=== PATIENT | female | born 1940 | race African-American/Black ===

== ENCOUNTER 2023-06-10 23:26 | Inpatient (IN) | payer OTHER ==
[2023-06-10 23:43] VITALS: BMI 37.2
[2023-06-11 04:15] LABS: BASO % 0.7 % (0-2.0); EOS % 2.4 % (0-4.5); HEMATOCRIT 39.6 % (32.4-45.2); HEMOGLOBIN 12.7 GM/dL (10.7-15.3); LYMPH % 24.9 % (8-40); MCH 29.4 pg (25.7-33.7); MCHC 32.1 g/dl (32.0-36.0); MEAN CELL VOLUME 91.8 fl (80-96); MEAN PLT VOLUME 9.7 fl (7.5-11.1); MONO % 7.5 % (3.8-10.2); NEUT % 64.5 % (42.8-82.8); PLATELET COUNT 283 10^3/uL (134-434); RBC 4.32 M/mm3 (3.60-5.2); RDW 14.9 % (11.6-15.6); WHITE BLOOD COUNT 7.6 K/mm3 (4.0-10.0)
[2023-06-11 04:34] LABS: CHLORIDE 104 mmol/L (98-107); SODIUM 137 mmol/L (136-145)
[2023-06-11 04:35] LABS: CALCIUM 9.1 mg/dL (8.5-10.1)
[2023-06-11 04:36] LABS: ALBUMIN 3.1 g/dl (3.4-5.0); BLOOD UREA NITROGEN 15.3 mg/dL (7-18); CO2 28 mmol/L (21-32); GLUCOSE,RANDOM 91 mg/dL (74-106)
[2023-06-11 04:39] LABS: SGOT/AST 78 U/L (15-37)
[2023-06-11 04:41] LABS: BILIRUBIN,TOTAL 0.4 mg/dL (0.2-1); TOT PROT 8.1 g/dl (6.4-8.2)
[2023-06-11 04:42] LABS: ALK PHOS 83 U/L (45-117)
[2023-06-11 04:48] LABS: ANION GAP 5 mmol/L (4-13); POTASSIUM 6.7 mmol/L (3.5-5.1); SGPT/ALT 19 U/L (13-61)
[2023-06-11 05:07] LABS: PH,URINE 5.5 (5.0-8.0); URINE APPEARANCE CLEAR; URINE BILIRUBIN NEGATIVE (NEGATIVE); URINE COLOR YELLOW; URINE GLUCOSE (UA) NEGATIVE (NEGATIVE); URINE KETONE TRACE (NEGATIVE); URINE LEUK ESTERASE NEGATIVE (NEGATIVE); URINE NITRITE NEGATIVE (NEGATIVE); URINE PROTEIN NEGATIVE (NEGATIVE); URINE UROBILINOGEN 0.2 mg/dL (0.2-1.0)
[2023-06-11 06:33] LABS: POTASSIUM 3.5 mmol/L (3.5-5.1)
[2023-06-11 06:34] LABS: CALCIUM 8.4 mg/dL (8.5-10.1)
[2023-06-11 06:35] LABS: BLOOD UREA NITROGEN 15.8 mg/dL (7-18)
[2023-06-11 06:38] LABS: CREATININE 0.9 mg/dL (0.55-1.3)
[2023-06-11] MEDS ORDERED: ASPIRIN 81 MG CHEWABLE TABLETS ONE (09:41)
[2023-06-11] MEDS ORDERED: ENOXAPARIN NA (PORCINE) 40 MG/0.4 ML DISP.SYRIN SQ ONE (09:42)
[2023-06-11] MEDS: ASPIRIN 81 MG CHEWABLE TABLETS PO SCH (09:43)
[2023-06-11] MEDS: ATORVASTATIN CA 40 MG TABLET (FP) PO SCH (21:28)
[2023-06-11] MEDS: amLODIPine BESYLATE 5 MG TABLET (FP) PO SCH (21:28)
[2023-06-11] MEDS: LOSARTAN POTASSIUM 50 MG TABLET PO SCH (21:28)
[2023-06-12] MEDS: ASPIRIN 81 MG CHEWABLE TABLETS PO SCH (09:37)
[2023-06-12] MEDS: ENOXAPARIN NA (PORCINE) 40 MG/0.4 ML DISP.SYRIN SQ SCH (09:37)
[2023-06-12] MEDS: amLODIPine BESYLATE 5 MG TABLET (FP) PO SCH (09:37)
[2023-06-12] MEDS: LOSARTAN POTASSIUM 50 MG TABLET PO SCH (09:37)
[2023-06-12 09:42] LABS: EOS % 2.8 % (0-4.5); HEMATOCRIT 38.1 % (32.4-45.2); HEMOGLOBIN 12.4 GM/dL (10.7-15.3); LYMPH % 24.2 % (8-40); MCH 29.8 pg (25.7-33.7); MCHC 32.4 g/dl (32.0-36.0); MEAN PLT VOLUME 9.6 fl (7.5-11.1); MONO % 7.1 % (3.8-10.2); NEUT % 64.9 % (42.8-82.8); PLATELET COUNT 282 10^3/uL (134-434); RBC 4.14 M/mm3 (3.60-5.2); WHITE BLOOD COUNT 7.3 K/mm3 (4.0-10.0)
[2023-06-12 09:58] LABS: POTASSIUM 3.8 mmol/L (3.5-5.1)
[2023-06-12 10:00] LABS: ALBUMIN 2.9 g/dl (3.4-5.0); BLOOD UREA NITROGEN 9.8 mg/dL (7-18); CALCIUM 9.4 mg/dL (8.5-10.1); MAGNESIUM 2.2 mg/dL (1.8-2.4)
[2023-06-12 10:03] LABS: PHOSPHOROUS 3.2 mg/dL (2.5-4.9)
[2023-06-12 10:04] LABS: CREATININE 0.7 mg/dL (0.55-1.3)
[2023-06-12 10:05] LABS: BILIRUBIN,TOTAL 0.4 mg/dL (0.2-1); TOT PROT 6.9 g/dl (6.4-8.2)
[2023-06-12] MEDS ORDERED: LORazepam 0.5 MG TABLET PO ONE (14:56)
[2023-06-12] MEDS: ATORVASTATIN CA 40 MG TABLET (FP) PO SCH (21:25)
[2023-06-13] MEDS: ENOXAPARIN NA (PORCINE) 40 MG/0.4 ML DISP.SYRIN SQ SCH (09:33)
[2023-06-13] MEDS: amLODIPine BESYLATE 5 MG TABLET (FP) PO SCH (09:33)
[2023-06-13] MEDS: LOSARTAN POTASSIUM 50 MG TABLET PO SCH (09:33)
[2023-06-13] MEDS: ASPIRIN 81 MG CHEWABLE TABLETS PO SCH (09:33)
[2023-06-13 10:20] LABS: BASO % 0.4 % (0-2.0); EOS % 2.9 % (0-4.5); HEMATOCRIT 35.9 % (32.4-45.2); HEMOGLOBIN 11.7 GM/dL (10.7-15.3); LYMPH % 25.1 % (8-40); MCH 29.8 pg (25.7-33.7); MCHC 32.7 g/dl (32.0-36.0); MEAN CELL VOLUME 91.1 fl (80-96); MEAN PLT VOLUME 9.9 fl (7.5-11.1); MONO % 8.1 % (3.8-10.2); NEUT % 63.5 % (42.8-82.8); PLATELET COUNT 240 10^3/uL (134-434); RBC 3.94 M/mm3 (3.60-5.2); RDW 15.1 % (11.6-15.6)
[2023-06-13 10:28] LABS: POTASSIUM 4.1 mmol/L (3.5-5.1)
[2023-06-13 10:52] LABS: ALBUMIN 2.7 g/dl (3.4-5.0); BLOOD UREA NITROGEN 14.3 mg/dL (7-18); CALCIUM 8.6 mg/dL (8.5-10.1); MAGNESIUM 2.1 mg/dL (1.8-2.4)
[2023-06-13 10:55] LABS: CREATININE 0.6 mg/dL (0.55-1.3)
[2023-06-13 10:57] LABS: BILIRUBIN,TOTAL 0.4 mg/dL (0.2-1); TOT PROT 6.4 g/dl (6.4-8.2)
[2023-06-13] MEDS: CARBIDOPA/LEVODOPA 25/100 TABLET (FP) PO SCH ×2 (14:12→21:49)
[2023-06-13] MEDS: ATORVASTATIN CA 40 MG TABLET (FP) PO SCH (21:49)
[2023-06-14] MEDS: CARBIDOPA/LEVODOPA 25/100 TABLET (FP) PO SCH ×3 (06:07→21:33)
[2023-06-14] MEDS: LOSARTAN POTASSIUM 50 MG TABLET PO SCH (09:23)
[2023-06-14] MEDS: amLODIPine BESYLATE 5 MG TABLET (FP) PO SCH (09:23)
[2023-06-14] MEDS: ASPIRIN 81 MG CHEWABLE TABLETS PO SCH (09:23)
[2023-06-14] MEDS: ENOXAPARIN NA (PORCINE) 40 MG/0.4 ML DISP.SYRIN SQ SCH (09:23)
[2023-06-14 09:38] LABS: BASO % 0.3 % (0-2.0); EOS % 4.2 % (0-4.5); HEMATOCRIT 34.2 % (32.4-45.2); HEMOGLOBIN 10.9 GM/dL (10.7-15.3); LYMPH % 27.3 % (8-40); MCH 29.6 pg (25.7-33.7); MEAN CELL VOLUME 92.4 fl (80-96); MEAN PLT VOLUME 9.8 fl (7.5-11.1); MONO % 8.6 % (3.8-10.2); NEUT % 59.6 % (42.8-82.8); PLATELET COUNT 246 10^3/uL (134-434); RDW 14.4 % (11.6-15.6); WHITE BLOOD COUNT 7.4 K/mm3 (4.0-10.0)
[2023-06-14 10:02] LABS: CHLORIDE 105 mmol/L (98-107); POTASSIUM 4.1 mmol/L (3.5-5.1); SODIUM 138 mmol/L (136-145)
[2023-06-14 10:09] LABS: BLOOD UREA NITROGEN 15.4 mg/dL (7-18); CALCIUM 8.8 mg/dL (8.5-10.1)
[2023-06-14 10:10] LABS: ALBUMIN 2.6 g/dl (3.4-5.0); MAGNESIUM 2.2 mg/dL (1.8-2.4)
[2023-06-14 10:13] LABS: CREATININE 0.6 mg/dL (0.55-1.3); SGOT/AST 16 U/L (15-37)
[2023-06-14 10:14] LABS: TOT PROT 6.1 g/dl (6.4-8.2)
[2023-06-14 10:16] LABS: ALK PHOS 73 U/L (45-117); BILIRUBIN,TOTAL 0.8 mg/dL (0.2-1)
[2023-06-14 10:18] LABS: ANION GAP 5 mmol/L (4-13); CO2 28 mmol/L (21-32); GLUCOSE,RANDOM 90 mg/dL (74-106); SGPT/ALT < 6 U/L (13-61)
[2023-06-14] MEDS: ATORVASTATIN CA 40 MG TABLET (FP) PO SCH (21:33)
[2023-06-14] MEDS: GABAPENTIN 100 MG CAPSULE PO SCH (21:33)
[2023-06-15] MEDS: CARBIDOPA/LEVODOPA 25/100 TABLET (FP) PO SCH ×3 (05:11→21:36)
[2023-06-15] MEDS: ENOXAPARIN NA (PORCINE) 40 MG/0.4 ML DISP.SYRIN SQ SCH (09:09)
[2023-06-15] MEDS: LOSARTAN POTASSIUM 50 MG TABLET PO SCH (09:09)
[2023-06-15] MEDS: amLODIPine BESYLATE 5 MG TABLET (FP) PO SCH (09:09)
[2023-06-15] MEDS: ASPIRIN 81 MG CHEWABLE TABLETS PO SCH (09:09)
[2023-06-15 10:16] LABS: BASO % 0.5 % (0-2.0); EOS % 3.2 % (0-4.5); HEMATOCRIT 36.8 % (32.4-45.2); HEMOGLOBIN 11.9 GM/dL (10.7-15.3); LYMPH % 23.1 % (8-40); MCH 29.5 pg (25.7-33.7); MCHC 32.3 g/dl (32.0-36.0); MEAN CELL VOLUME 91.4 fl (80-96); MEAN PLT VOLUME 9.9 fl (7.5-11.1); MONO % 8.1 % (3.8-10.2); NEUT % 65.1 % (42.8-82.8); PLATELET COUNT 275 10^3/uL (134-434); RBC 4.02 M/mm3 (3.60-5.2); RDW 14.5 % (11.6-15.6); WHITE BLOOD COUNT 8.2 K/mm3 (4.0-10.0)
[2023-06-15 10:24] LABS: CHLORIDE 105 mmol/L (98-107); POTASSIUM 4.2 mmol/L (3.5-5.1); SODIUM 138 mmol/L (136-145)
[2023-06-15 10:28] LABS: CALCIUM 9.2 mg/dL (8.5-10.1); GLUCOSE,RANDOM 86 mg/dL (74-106)
[2023-06-15 10:29] LABS: ALBUMIN 2.6 g/dl (3.4-5.0); ANION GAP 4 mmol/L (4-13); BLOOD UREA NITROGEN 14.7 mg/dL (7-18); CO2 29 mmol/L (21-32); MAGNESIUM 2.2 mg/dL (1.8-2.4)
[2023-06-15 10:32] LABS: CREATININE 0.6 mg/dL (0.55-1.3); SGOT/AST 15 U/L (15-37)
[2023-06-15 10:33] LABS: BILIRUBIN,TOTAL 0.4 mg/dL (0.2-1); TOT PROT 6.3 g/dl (6.4-8.2)
[2023-06-15 10:34] LABS: ALK PHOS 78 U/L (45-117)
[2023-06-15 10:43] LABS: SGPT/ALT < 6 U/L (13-61)
[2023-06-15] MEDS: ATORVASTATIN CA 40 MG TABLET (FP) PO SCH (21:36)
[2023-06-15] MEDS: GABAPENTIN 100 MG CAPSULE PO SCH (21:36)
[2023-06-16] MEDS: CARBIDOPA/LEVODOPA 25/100 TABLET (FP) PO SCH ×3 (06:00→22:04)
[2023-06-16] MEDS: amLODIPine BESYLATE 5 MG TABLET (FP) PO SCH (09:03)
[2023-06-16] MEDS: ASPIRIN 81 MG CHEWABLE TABLETS PO SCH (09:03)
[2023-06-16] MEDS: ENOXAPARIN NA (PORCINE) 40 MG/0.4 ML DISP.SYRIN SQ SCH (09:03)
[2023-06-16] MEDS: LOSARTAN POTASSIUM 50 MG TABLET PO SCH (09:04)
[2023-06-16 10:15] LABS: BASO % 0.4 % (0-2.0); HEMATOCRIT 35.6 % (32.4-45.2); HEMOGLOBIN 11.3 GM/dL (10.7-15.3); LYMPH % 20.2 % (8-40); MCH 29.2 pg (25.7-33.7); MCHC 31.8 g/dl (32.0-36.0); MEAN PLT VOLUME 9.1 fl (7.5-11.1); MONO % 6.7 % (3.8-10.2); NEUT % 69.7 % (42.8-82.8); PLATELET COUNT 282 10^3/uL (134-434); RBC 3.87 M/mm3 (3.60-5.2); RDW 14.5 % (11.6-15.6); WHITE BLOOD COUNT 7.7 K/mm3 (4.0-10.0)
[2023-06-16 10:33] LABS: POTASSIUM 3.8 mmol/L (3.5-5.1)
[2023-06-16 10:37] LABS: ALBUMIN 2.6 g/dl (3.4-5.0); BLOOD UREA NITROGEN 15.5 mg/dL (7-18); MAGNESIUM 2.1 mg/dL (1.8-2.4)
[2023-06-16 10:40] LABS: CREATININE 0.7 mg/dL (0.55-1.3)
[2023-06-16 10:41] LABS: BILIRUBIN,TOTAL 0.3 mg/dL (0.2-1); TOT PROT 6.3 g/dl (6.4-8.2)
[2023-06-16] MEDS: ATORVASTATIN CA 40 MG TABLET (FP) PO SCH (22:04)
[2023-06-16] MEDS: GABAPENTIN 100 MG CAPSULE PO SCH (22:04)
[2023-06-17] MEDS: CARBIDOPA/LEVODOPA 25/100 TABLET (FP) PO SCH ×3 (05:21→22:02)
[2023-06-17] MEDS: amLODIPine BESYLATE 5 MG TABLET (FP) PO SCH (09:36)
[2023-06-17] MEDS: ENOXAPARIN NA (PORCINE) 40 MG/0.4 ML DISP.SYRIN SQ SCH (09:36)
[2023-06-17] MEDS: ASPIRIN 81 MG CHEWABLE TABLETS PO SCH (09:36)
[2023-06-17] MEDS: LOSARTAN POTASSIUM 50 MG TABLET PO SCH (09:36)
[2023-06-17 10:27] LABS: BASO % 0.8 % (0-2.0); EOS % 3.5 % (0-4.5); HEMOGLOBIN 11.3 GM/dL (10.7-15.3); MCH 29.3 pg (25.7-33.7); MCHC 32.3 g/dl (32.0-36.0); MEAN CELL VOLUME 90.7 fl (80-96); MEAN PLT VOLUME 9.5 fl (7.5-11.1); MONO % 6.5 % (3.8-10.2); NEUT % 67.2 % (42.8-82.8); PLATELET COUNT 278 10^3/uL (134-434); RBC 3.86 M/mm3 (3.60-5.2); RDW 14.6 % (11.6-15.6); WHITE BLOOD COUNT 7.8 K/mm3 (4.0-10.0)
[2023-06-17 11:26] LABS: POTASSIUM 3.8 mmol/L (3.5-5.1)
[2023-06-17 11:34] LABS: ALBUMIN 2.5 g/dl (3.4-5.0); BLOOD UREA NITROGEN 15.4 mg/dL (7-18); CALCIUM 9.2 mg/dL (8.5-10.1)
[2023-06-17 11:35] LABS: CREATININE 0.6 mg/dL (0.55-1.3); MAGNESIUM 2.1 mg/dL (1.8-2.4)
[2023-06-17 11:37] LABS: BILIRUBIN,TOTAL 0.3 mg/dL (0.2-1)
[2023-06-17 11:39] LABS: TOT PROT 6.3 g/dl (6.4-8.2)
[2023-06-17] MEDS: GABAPENTIN 100 MG CAPSULE PO SCH (22:01)
[2023-06-17] MEDS: ATORVASTATIN CA 40 MG TABLET (FP) PO SCH (22:01)
[2023-06-18] MEDS: CARBIDOPA/LEVODOPA 25/100 TABLET (FP) PO SCH ×3 (06:34→22:44)
[2023-06-18 09:27] LABS: BASO % 0.8 % (0-2.0); EOS % 3.8 % (0-4.5); HEMATOCRIT 34.2 % (32.4-45.2); HEMOGLOBIN 11.2 GM/dL (10.7-15.3); LYMPH % 20.6 % (8-40); MCH 29.8 pg (25.7-33.7); MCHC 32.7 g/dl (32.0-36.0); MEAN PLT VOLUME 9.7 fl (7.5-11.1); MONO % 8.5 % (3.8-10.2); NEUT % 66.3 % (42.8-82.8); PLATELET COUNT 282 10^3/uL (134-434); RBC 3.76 M/mm3 (3.60-5.2); RDW 14.6 % (11.6-15.6); WHITE BLOOD COUNT 7.3 K/mm3 (4.0-10.0)
[2023-06-18] MEDS: ENOXAPARIN NA (PORCINE) 40 MG/0.4 ML DISP.SYRIN SQ SCH (09:28)
[2023-06-18] MEDS: amLODIPine BESYLATE 5 MG TABLET (FP) PO SCH (09:28)
[2023-06-18] MEDS: LOSARTAN POTASSIUM 50 MG TABLET PO SCH (09:28)
[2023-06-18] MEDS: ASPIRIN 81 MG CHEWABLE TABLETS PO SCH (09:28)
[2023-06-18 09:33] VITALS: RESP 18
[2023-06-18 09:52] LABS: BLOOD UREA NITROGEN 14.4 mg/dL (7-18)
[2023-06-18 09:53] LABS: ALBUMIN 2.4 g/dl (3.4-5.0); CALCIUM 8.4 mg/dL (8.5-10.1); MAGNESIUM 1.8 mg/dL (1.8-2.4)
[2023-06-18 09:55] LABS: CREATININE 0.5 mg/dL (0.55-1.3)
[2023-06-18 09:56] LABS: BILIRUBIN,TOTAL 0.3 mg/dL (0.2-1)
[2023-06-18 09:57] LABS: TOT PROT 6.1 g/dl (6.4-8.2)
[2023-06-18] MEDS: GABAPENTIN 100 MG CAPSULE PO SCH (22:44)
[2023-06-18] MEDS: ATORVASTATIN CA 40 MG TABLET (FP) PO SCH (22:44)
[2023-06-19] MEDS: CARBIDOPA/LEVODOPA 25/100 TABLET (FP) PO SCH ×3 (05:47→22:03)
[2023-06-19 09:34] LABS: BASO % 0.5 % (0-2.0); EOS % 3.3 % (0-4.5); HEMATOCRIT 34.9 % (32.4-45.2); HEMOGLOBIN 11.2 GM/dL (10.7-15.3); MCH 29.4 pg (25.7-33.7); MCHC 32.1 g/dl (32.0-36.0); MEAN CELL VOLUME 91.6 fl (80-96); MEAN PLT VOLUME 9.7 fl (7.5-11.1); MONO % 8.6 % (3.8-10.2); NEUT % 65.6 % (42.8-82.8); PLATELET COUNT 299 10^3/uL (134-434); RBC 3.81 M/mm3 (3.60-5.2); RDW 14.7 % (11.6-15.6); WHITE BLOOD COUNT 8.1 K/mm3 (4.0-10.0)
[2023-06-19 09:54] LABS: ALBUMIN 2.4 g/dl (3.4-5.0); BLOOD UREA NITROGEN 13.2 mg/dL (7-18); CALCIUM 8.2 mg/dL (8.5-10.1); MAGNESIUM 1.8 mg/dL (1.8-2.4)
[2023-06-19 09:57] LABS: CREATININE 0.6 mg/dL (0.55-1.3)
[2023-06-19 09:59] LABS: BILIRUBIN,TOTAL 0.3 mg/dL (0.2-1); TOT PROT 6.3 g/dl (6.4-8.2)
[2023-06-19] MEDS: ASPIRIN 81 MG CHEWABLE TABLETS PO SCH (11:50)
[2023-06-19] MEDS: LOSARTAN POTASSIUM 50 MG TABLET PO SCH (11:50)
[2023-06-19] MEDS: amLODIPine BESYLATE 5 MG TABLET (FP) PO SCH (11:50)
[2023-06-19] MEDS: GABAPENTIN 100 MG CAPSULE PO SCH (22:03)
[2023-06-19] MEDS: ATORVASTATIN CA 40 MG TABLET (FP) PO SCH (22:03)
[2023-06-20 05:27] VITALS: BP 149/65; PULSE 58; TEMP 97.5
[2023-06-20] MEDS: CARBIDOPA/LEVODOPA 25/100 TABLET (FP) PO SCH ×2 (05:41→13:03)
[2023-06-20] MEDS: LOSARTAN POTASSIUM 50 MG TABLET PO SCH (09:43)
[2023-06-20] MEDS: ASPIRIN 81 MG CHEWABLE TABLETS PO SCH (09:43)
[2023-06-20] MEDS: amLODIPine BESYLATE 5 MG TABLET (FP) PO SCH (09:43)
== END 2023-06-20 14:15 | DRG 56 ==
LOC: JER 23:26 → JERBED 06-11 05:43 → J8W 06-11 17:42 → OBSVTOIN 06-12 15:00 → J8W 06-18 23:02
PROVIDERS: ADMIT Internal Medicine; ATTEND Nurse Practitioner Acute Care
DX: G20.A1 Parkinson's disease without dyskinesia, without mention of fluctuations (principal); U07.1 COVID-19; I69.354 Hemiplegia and hemiparesis following cerebral infarction affecting left non-dominant side; R26.81 Unsteadiness on feet
CPT/HCPCS: 36415; 70450-TC; 72100-TC-FY; 72125-TC; 72131-TC; 80048; 80053; 81003; 82550; 82553; 82607; 83735; 84100; 84439; 84443; 84484; 85025; 87086; 87635; 93005; 93010; 93880-TC; 97116-GP; 97161-GP; 99285-25; G0378

== ENCOUNTER 2023-08-27 00:05 | Inpatient (IN) | payer OTHER, BC ==
[2023-08-27 00:22] VITALS: BMI 28.7
[2023-08-27 01:35] LABS: BASO % 0.4 % (0-2.0); HEMATOCRIT 38.5 % (32.4-45.2); HEMOGLOBIN 12.7 GM/dL (10.7-15.3); LYMPH % 22.3 % (8-40); MCH 30.8 pg (25.7-33.7); MEAN CELL VOLUME 93.2 fl (80-96); MEAN PLT VOLUME 7.9 fl (7.5-11.1); MONO % 7.9 % (3.8-10.2); NEUT % 66.4 % (42.8-82.8); PLATELET COUNT 382 10^3/uL (134-434); RBC 4.13 M/mm3 (3.60-5.2); RDW 16.5 % (11.6-15.6); WHITE BLOOD COUNT 9.8 K/mm3 (4.0-10.0)
[2023-08-27 01:44] LABS: INR 1.09 (0.83-1.09); PROTHROMBIN TIME (PATIENT) 12.6 SEC (9.7-13.0)
[2023-08-27 01:55] LABS: POTASSIUM 4.1 mmol/L (3.5-5.1)
[2023-08-27 01:57] LABS: CALCIUM 9.6 mg/dL (8.5-10.1)
[2023-08-27 01:58] LABS: ALBUMIN 3.5 g/dl (3.4-5.0); BLOOD UREA NITROGEN 12.5 mg/dL (7-18)
[2023-08-27 02:01] LABS: CREATININE 0.7 mg/dL (0.55-1.3)
[2023-08-27 02:02] LABS: BILIRUBIN,TOTAL 0.4 mg/dL (0.2-1); TOT PROT 8.2 g/dl (6.4-8.2)
[2023-08-27 02:05] LABS: N-TERMINAL BNP 210.8 pg/ml (5-450)
[2023-08-27] MEDS ORDERED: CARBIDOPA/LEVODOPA 25/100 TABLET (FP) ONE (06:18)
[2023-08-27] MEDS: CARBIDOPA/LEVODOPA 25/100 TABLET (FP) PO SCH (06:25)
[2023-08-27 06:40] LABS: EPI CELLS 32 /uL (0-25.1); HYALINE CASTS 0 /uL (0-3.1); URINE APPEARANCE CLOUDY; URINE BACTERIA >9,000 /uL (0-1359); URINE BILIRUBIN NEGATIVE (NEGATIVE); URINE COLOR YELLOW; URINE GLUCOSE (UA) NEGATIVE (NEGATIVE); URINE KETONE TRACE (NEGATIVE); URINE LEUK ESTERASE TRACE (NEGATIVE); URINE NITRITE POSITIVE (NEGATIVE); URINE PROTEIN NEGATIVE (NEGATIVE); URINE RBC 20 /uL (0-23.9); URINE UROBILINOGEN 0.2 mg/dL (0.2-1.0); URINE WBC 49 /uL (0-25.8)
[2023-08-27 07:54] LABS: BASO % 0.5 % (0-2.0); EOS % 1.5 % (0-4.5); HEMATOCRIT 34.5 % (32.4-45.2); HEMOGLOBIN 11.3 GM/dL (10.7-15.3); LYMPH % 12.3 % (8-40); MCH 30.7 pg (25.7-33.7); MCHC 32.7 g/dl (32.0-36.0); MEAN CELL VOLUME 93.9 fl (80-96); MEAN PLT VOLUME 8.5 fl (7.5-11.1); MONO % 7.2 % (3.8-10.2); NEUT % 78.5 % (42.8-82.8); PLATELET COUNT 348 10^3/uL (134-434); RBC 3.68 M/mm3 (3.60-5.2); RDW 16.3 % (11.6-15.6); WHITE BLOOD COUNT 11.1 K/mm3 (4.0-10.0)
[2023-08-27 08:11] LABS: CALCIUM 9.5 mg/dL (8.5-10.1)
[2023-08-27 08:12] LABS: ALBUMIN 3.1 g/dl (3.4-5.0); BLOOD UREA NITROGEN 12.2 mg/dL (7-18); MAGNESIUM 2.2 mg/dL (1.8-2.4)
[2023-08-27 08:15] LABS: CREATININE 0.5 mg/dL (0.55-1.3); PHOSPHOROUS 3.4 mg/dL (2.5-4.9)
[2023-08-27 08:16] LABS: BILIRUBIN,TOTAL 0.5 mg/dL (0.2-1); TOT PROT 7.4 g/dl (6.4-8.2)
[2023-08-27] MEDS ORDERED: ACETAMINOPHEN 1000 MG/100 ML BAG IVPB PRN (10:08)
[2023-08-27] MEDS ORDERED: ACETAMINOPHEN INJECTION 100 ML IVPB ONE (10:34)
[2023-08-27] MEDS: ASPIRIN 81 MG CHEWABLE TABLETS PO SCH (11:00)
[2023-08-27] MEDS: LOSARTAN POTASSIUM 50 MG TABLET PO SCH (11:00)
[2023-08-27] MEDS: amLODIPine BESYLATE 5 MG TABLET (FP) PO SCH (11:00)
[2023-08-27] MEDS: ENOXAPARIN NA (PORCINE) 40 MG/0.4 ML DISP.SYRIN SQ SCH (11:00)
[2023-08-27] MEDS: GABAPENTIN 100 MG CAPSULE PO SCH (21:30)
[2023-08-27] MEDS: ATORVASTATIN CA 40 MG TABLET (FP) PO SCH (21:30)
[2023-08-28 09:36] LABS: BASO % 0.5 % (0-2.0); EOS % 3.4 % (0-4.5); HEMATOCRIT 35.1 % (32.4-45.2); HEMOGLOBIN 11.3 GM/dL (10.7-15.3); LYMPH % 23.4 % (8-40); MCH 30.1 pg (25.7-33.7); MCHC 32.2 g/dl (32.0-36.0); MEAN CELL VOLUME 93.6 fl (80-96); MEAN PLT VOLUME 8.7 fl (7.5-11.1); MONO % 7.3 % (3.8-10.2); NEUT % 65.4 % (42.8-82.8); PLATELET COUNT 357 10^3/uL (134-434); RBC 3.75 M/mm3 (3.60-5.2); RDW 16.3 % (11.6-15.6); WHITE BLOOD COUNT 8.5 K/mm3 (4.0-10.0)
[2023-08-28 10:17] LABS: POTASSIUM 4.2 mmol/L (3.5-5.1)
[2023-08-28 10:40] LABS: BLOOD UREA NITROGEN 17.9 mg/dL (7-18)
[2023-08-28 10:43] LABS: CALCIUM 9.1 mg/dL (8.5-10.1); CREATININE 0.7 mg/dL (0.55-1.3)
[2023-08-28 10:45] LABS: BILIRUBIN,TOTAL 0.4 mg/dL (0.2-1)
[2023-08-28] MEDS: traMADol HCL 50 MG TABLET PO PRN (13:11)
[2023-08-30 10:10] LABS: CHLORIDE 104 mmol/L (98-107); POTASSIUM 4.3 mmol/L (3.5-5.1); SODIUM 140 mmol/L (136-145)
[2023-08-30 10:19] LABS: ALBUMIN 2.6 g/dl (3.4-5.0); GLUCOSE,RANDOM 104 mg/dL (74-106)
[2023-08-30 10:20] LABS: BLOOD UREA NITROGEN 18.2 mg/dL (7-18)
[2023-08-30 10:21] LABS: BILIRUBIN,TOTAL 0.4 mg/dL (0.2-1); CALCIUM 8.6 mg/dL (8.5-10.1); TOT PROT 6.5 g/dl (6.4-8.2)
[2023-08-30 10:22] LABS: ALK PHOS 112 U/L (45-117); ANION GAP 9 mmol/L (4-13); CO2 27 mmol/L (21-32); SGOT/AST 14 U/L (15-37)
[2023-08-30 10:23] LABS: CREATININE 0.6 mg/dL (0.55-1.3)
[2023-08-30 10:47] LABS: SGPT/ALT < 6 U/L (13-61)
[2023-08-30] MEDS: CEFUROXIME AXETIL 500 MG TABLET PO SCH (11:56)
[2023-08-31 09:41] LABS: BASO % 0.6 % (0-2.0); EOS % 4.8 % (0-4.5); HEMATOCRIT 34.1 % (32.4-45.2); LYMPH % 20.5 % (8-40); MCH 30.2 pg (25.7-33.7); MCHC 32.2 g/dl (32.0-36.0); MEAN CELL VOLUME 93.6 fl (80-96); MEAN PLT VOLUME 8.6 fl (7.5-11.1); MONO % 7.2 % (3.8-10.2); NEUT % 66.9 % (42.8-82.8); PLATELET COUNT 329 10^3/uL (134-434); RBC 3.64 M/mm3 (3.60-5.2); RDW 16.1 % (11.6-15.6); WHITE BLOOD COUNT 7.5 K/mm3 (4.0-10.0)
[2023-08-31 09:46] LABS: CHLORIDE 106 mmol/L (98-107); POTASSIUM 4.1 mmol/L (3.5-5.1); SODIUM 140 mmol/L (136-145)
[2023-08-31 09:57] LABS: GLUCOSE,RANDOM 138 mg/dL (74-106)
[2023-08-31 09:59] LABS: ALBUMIN 2.7 g/dl (3.4-5.0); ANION GAP 6 mmol/L (4-13); BLOOD UREA NITROGEN 18.1 mg/dL (7-18); CO2 28 mmol/L (21-32)
[2023-08-31 10:01] LABS: SGOT/AST 11 U/L (15-37)
[2023-08-31 10:02] LABS: BILIRUBIN,TOTAL 0.4 mg/dL (0.2-1); TOT PROT 6.4 g/dl (6.4-8.2)
[2023-08-31 10:03] LABS: ALK PHOS 107 U/L (45-117); CREATININE 0.6 mg/dL (0.55-1.3); SGPT/ALT < 6 U/L (13-61)
[2023-09-01 08:35] LABS: HEMATOCRIT 34.1 % (32.4-45.2); HEMOGLOBIN 11.4 GM/dL (10.7-15.3); MCH 31.1 pg (25.7-33.7); MCHC 33.5 g/dl (32.0-36.0); MEAN CELL VOLUME 92.6 fl (80-96); MEAN PLT VOLUME 8.4 fl (7.5-11.1); PLATELET COUNT 338 10^3/uL (134-434); RBC 3.68 M/mm3 (3.60-5.2); RDW 15.9 % (11.6-15.6); WHITE BLOOD COUNT 7.1 K/mm3 (4.0-10.0)
[2023-09-01 08:38] LABS: CHLORIDE 104 mmol/L (98-107); POTASSIUM 4.1 mmol/L (3.5-5.1); SODIUM 139 mmol/L (136-145)
[2023-09-01 08:40] LABS: CALCIUM 8.8 mg/dL (8.5-10.1)
[2023-09-01 08:41] LABS: ALBUMIN 2.6 g/dl (3.4-5.0); ANION GAP 5 mmol/L (4-13); BLOOD UREA NITROGEN 15.2 mg/dL (7-18); CO2 29 mmol/L (21-32); GLUCOSE,RANDOM 90 mg/dL (74-106); MAGNESIUM 2.1 mg/dL (1.8-2.4)
[2023-09-01 08:44] LABS: CREATININE 0.6 mg/dL (0.55-1.3); PHOSPHOROUS 3.3 mg/dL (2.5-4.9); SGOT/AST 11 U/L (15-37); SGPT/ALT < 6 U/L (13-61)
[2023-09-01 08:45] LABS: BILIRUBIN,TOTAL 0.3 mg/dL (0.2-1)
[2023-09-01 08:46] LABS: TOT PROT 6.4 g/dl (6.4-8.2)
[2023-09-01 08:47] LABS: ALK PHOS 112 U/L (45-117)
[2023-09-02 08:52] VITALS: RESP 20
[2023-09-02] MEDS: ACETAMINOPHEN 325 MG TABLET (FP) PO PRN (10:34)
[2023-09-02 14:12] VITALS: BP 127/58; PULSE 62; TEMP 97.8
== END 2023-09-02 14:15 | DRG 690 ==
LOC: JER 00:05 → JERBED 05:36 → OBSVTOIN 16:15 → J6S 18:24
PROVIDERS: ADMIT Internal Medicine; ATTEND Internal Medicine
DX: N39.0 Urinary tract infection, site not specified (principal); I69.354 Hemiplegia and hemiparesis following cerebral infarction affecting left non-dominant side; M54.50 Low back pain, unspecified; I10 Essential (primary) hypertension; G20.A1 Parkinson's disease without dyskinesia, without mention of fluctuations; M19.90 Unspecified osteoarthritis, unspecified site; B96.20 Unspecified Escherichia coli [E. coli] as the cause of diseases classified elsewhere
CPT/HCPCS: 36415; 70450-TC; 71045-TC-FY; 72125-TC; 72131-TC; 72170-TC-FY; 80053; 80061; 81003; 82550; 82553; 83735; 83880; 84100; 84484; 85025; 85027; 85610; 85730; 87086; 87186; 93005; 93010; 97116-GP; 97162-GP; 99285-25; G0378

== ENCOUNTER 2024-09-15 20:41 | Emergency (ER) | payer OTHER, BC ==
[2024-09-15 20:59] VITALS: TEMP 97.7; BMI 25.7
[2024-09-15] MEDS ORDERED: ALBUTEROL SO4 2.5/IPRATROPIUM 0.5 INH SOL 3 ML VIAL.NEB. NEB ONE (21:40)
[2024-09-15] MEDS ORDERED: methylPREDNISolone NA SUCC 125 MG/2 ML VIAL ONE (21:41)
[2024-09-15] MEDS: ONDANSETRON 4 MG/2 ML VIAL IVPUSH ONE (22:04)
[2024-09-15] MEDS: ALBUTEROL SO4 2.5/IPRATROPIUM 0.5 INH SOL 3 ML VIAL.NEB. NEB SCH (22:04)
[2024-09-15] MEDS: methylPREDNISolone NA SUCC 125 MG/2 ML VIAL IVPUSH ONE (22:04)
[2024-09-15 22:07] LABS: ABSOLUTE IMMATURE GRANULOCYTES 0.03 x10^3/uL (0.0-0.031); BASOPHILS # 0.02 x10^3/uL (0.01-0.08); EOSINOPHIL % 1.7 % (0.7-5.8); EOSINOPHILS # 0.17 x10^3/uL (0.04-0.36); HEMATOCRIT 41.5 % (34.1-44.9); HEMOGLOBIN 12.8 g/dL (11.2-15.7); MCHC 30.8 g/dl (32.2-35.5); MEAN CELL VOLUME 96.7 fl (79.4-94.8); MEAN PLT VOLUME 10.4 fl (9.4-12.3); PLATELET COUNT 385 x10^3/uL (182-369)
[2024-09-15 22:26] LABS: POTASSIUM 4.4 mmol/L (3.5-5.1)
[2024-09-15 22:29] LABS: ALBUMIN 3.2 g/dl (3.4-5.0); BLOOD UREA NITROGEN 16.8 mg/dL (7-18); CALCIUM 9.3 mg/dL (8.5-10.1)
[2024-09-15 22:32] LABS: CREATININE 0.6 mg/dL (0.55-1.3)
[2024-09-15 22:34] LABS: BILIRUBIN,TOTAL 0.2 mg/dL (0.2-1); TOT PROT 7.4 g/dl (6.4-8.2)
[2024-09-16 02:07] VITALS: BP 130/75; PULSE 87; RESP 16
== END 2024-09-16 02:59 | disposition home or self-care (01) ==
LOC: JER 20:41
PROC: 3E033GC Introduction of Other Therapeutic Substance into Peripheral Vein, Percutaneous Approach (ICD-10-PCS; principal; 2024-09-15)
PROC: 3E0F7GC Introduction of Other Therapeutic Substance into Respiratory Tract, Via Natural or Artificial Opening (ICD-10-PCS; 2024-09-15)
DX: R05.9 Cough, unspecified (principal); R11.2 Nausea with vomiting, unspecified
CPT/HCPCS: 0241U-QW; 36415; 71045-TC-FY; 80053; 84484; 85025; 93005; 93010; 94640; 96374; 99285-25

== ENCOUNTER 2024-11-11 06:54 | Emergency (ER) | payer OTHER, BC ==
[2024-11-11 07:27] VITALS: PULSE 70; BMI 37.7
[2024-11-11] MEDS ORDERED: ACETAMINOPHEN 325 MG TABLET (FP) ONE (09:00)
[2024-11-11] MEDS: ACETAMINOPHEN 325 MG TABLET (FP) PO ONE (09:12)
[2024-11-11 15:11] VITALS: BP 115/70; RESP 16
== END 2024-11-11 19:25 | disposition home or self-care (01) ==
LOC: JER 06:54
DX: S00.81XA Abrasion of other part of head, initial encounter (principal); M54.50 Low back pain, unspecified; M79.604 Pain in right leg; M25.551 Pain in right hip; R05.9 Cough, unspecified; R94.31 Abnormal electrocardiogram [ECG] [EKG]; W06.XXXA Fall from bed, initial encounter; Y92.009 Unspecified place in unspecified non-institutional (private) residence as the place of occurrence of the external cause
CPT/HCPCS: 70450-TC; 71045-TC-FY; 72125-TC; 72131-TC; 72170-TC-FY; 73502-TC-RT-FY; 93005; 93010; 99285-25